=== PATIENT | female | born 2000 | race Caucasian/White ===

== ENCOUNTER 2020-11-04 11:22 | Emergency (ER) | payer OTHER ==
[2020-11-04 11:30] VITALS: RESP 18; TEMP 98.3
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
[2020-11-04 12:50] VITALS: BP 129/79; PULSE 74
== END 2020-11-04 12:58 | disposition home or self-care (01) ==
LOC: EC 11:22
DX: S16.1XXA Strain of muscle, fascia and tendon at neck level, initial encounter (principal); S76.011A Strain of muscle, fascia and tendon of right hip, initial encounter; Z79.1 Long term (current) use of non-steroidal anti-inflammatories (NSAID); V48.5XXA Car driver injured in noncollision transport accident in traffic accident, initial encounter; Y92.410 Unspecified street and highway as the place of occurrence of the external cause
CPT/HCPCS: 71046; 72050; 73502; 99283

== ENCOUNTER 2021-11-11 19:33 | Emergency (ER) | payer OTHER ==
[2021-11-11 20:13] VITALS: BP 143/50; PULSE 63; RESP 16; TEMP 97.2
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
[2021-11-11] MEDS ORDERED: SODIUM CHLORIDE 0.9% 1,000 ML IV STA (20:54)
[2021-11-11] MEDS ORDERED: ONDANSETRON 4 MG/2 ML VIAL IVP STA (20:54)
[2021-11-11 22:04] LABS: Basophils # (A) 0.1 k/uL (0-0.2); Basophils % (A) 0 %; Eosinophils % (A) 0 %; Lymphocytes # (A) 1.2 k/uL (1.0-4.8); Lymphocytes % (A) 9 %; MCH 30.1 pg (25.0-35.0); MCHC 33.3 g/dL (31.0-37.0); MCV 90.4 fL (80.0-100.0); Mean Platelet Volume 8.8; Monocytes # (A) 0.5 k/uL (0-1.0); Monocytes % (A) 4 %; Neutrophils # (A) 11.5 k/uL (1.3-7.7); Neutrophils % (A) 86 %; Platelet Count 193 k/uL (150-450); RBC 4.97 m/uL (3.80-5.40); RDW 12.3 % (11.5-15.5); WBC 13.3 k/uL (3.8-10.6)
[2021-11-11 22:18] LABS: ALT 15 U/L (4-34); AST 23 U/L (14-36); African American GFR (CKD) >90 (>60 ml/min/1.73 sqM); Albumin 5.2 g/dL (3.5-5.0); Alkaline Phosphatase 66 U/L (38-126); Amylase 55 U/L (30-110); Anion Gap 10 mmol/L; Blood Urea Nitrogen 21 mg/dL (7-17); Calcium 9.9 mg/dL (8.4-10.2); Carbon Dioxide 26 mmol/L (22-30); Chloride 106 mmol/L (98-107); Glucose 115 mg/dL (74-99); Lipase 86 U/L (23-300); Non-African American GFR(CKD) >90 (>60 ml/min/1.73 sqM); Potassium 3.9 mmol/L (3.5-5.1); Sodium 142 mmol/L (137-145); Total Bilirubin 0.7 mg/dL (0.2-1.3); Total Protein 7.9 g/dL (6.3-8.2)
[2021-11-11 22:24] LABS: INR 0.9 (<1.2); Prothrombin Time 10.2 sec (9.0-12.0)
[2021-11-11 22:30] LABS: Partial Thromboplastin Time 21.5 sec (22.0-30.0)
--- NOTE | 2021-11-11 23:01 | CT ---
EXAMINATION TYPE: CT abdomen pelvis wo con DATE OF EXAM: 11/11/2021 COMPARISON: None HISTORY: abd pain CT DLP: 416.6 mGycm Automated exposure control for dose reduction was used. The lung bases are clear. No pleural effusion. Heart size is normal. No pericardial effusion. Liver s pleen stomach pancreas gallbladder appear intact. The bile ducts are not dilated. There is no adrenal mass. Kidneys have normal size. No hydronephrosis. There is no retroperitoneal ad enopathy. There are small calculi in the upper pole right kidney measuring up to 3 mm. No hydronephro sis. Ureters are not dilated. The bladder distends smoothly. Uterus is anteverted. No pelvic mass. No free fluid in the pelvis. No inguinal hernia. The lumbar vertebrae have normal alignment. No compression fracture. Bony pelvis is intact. The hip j oints are intact. Appendix not seen. No sign of thickened appendix. There is no mesenteric edema. No ascites or free air. No sign of a bowel obstruction. IMPRESSION: Nonobstructing right-sided renal calculi. Appendix not seen. No acute abnormality in the abdomen and pelvis.
== END 2021-11-11 23:16 | disposition home or self-care (01) ==
LOC: EC 19:33
DX: Z20.822 Contact with and (suspected) exposure to COVID-19 (principal); K52.9 Noninfective gastroenteritis and colitis, unspecified
CPT/HCPCS: 36415; 80053; 82150; 83605; 83690; 85025; 85610; 85730; 87502; 87635; 74176; 99284; 96374; 96361; J2405